=== PATIENT | female | born 1980 | race Two or more races ===

== ENCOUNTER 2018-02-11 07:11 | Emergency (ER) | payer BC ==
[~2018-02-11] VITALS: Ht 154.9 cm; Wt 69.6 kg
[2018-02-11 07:19] VITALS: BP 106/66; Ht 154.9 cm; Wt 69.6 kg
== END 2018-02-11 08:08 | disposition home or self-care (01) ==
LOC: ED 07:11
DX: M72.2 Plantar fascial fibromatosis (principal); M79.7 Fibromyalgia; Z88.6 Allergy status to analgesic agent
CPT/HCPCS: J1885